=== PATIENT | male | born 1950 | race Caucasian/White ===

== ENCOUNTER 2025-01-31 06:19 | Day surgery (SDC) | payer MEDICARE, OTHER, SELFPAY ==
[2025-01-15 11:26] VITALS: BMI 26.6
[2025-01-23 13:16] VITALS: BMI 26.6
[2025-01-31] VITALS (19 sets, daily range): BP systolic 113–166; BP diastolic 63–93; BMI 26.6
[2025-01-31] MEDS: LYRICA 150 MG PO (07:59)
[2025-01-31] MEDS: CELEBREX 200 MG PO (07:59)
[2025-01-31] MEDS: TYLENOL 1000 MG PO ×3 (07:59→20:22)
[2025-01-31] MEDS: METHOCARBAMOL 1500 MG PO ×3 (07:59→21:34)
[2025-01-31] MEDS: NORMOSOL-R/PLASMALYTE-A 1000 IV ×2 (08:00→17:04)
[2025-01-31 11:03] LABS: Glucose - Point of Care 132 mg/dl (70-99)
--- NOTE | 2025-01-31 11:19 | W.DS.TRANS ---
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
-
Discharge Instructions:
Sleep Apnea Risk Intermediate
Discharge Diagnosis/Procedures lumbar lami Reza 01/31/25
Diet As tolerated
Activity No strenuous activity
Driving Restrictions No driving
Instructions:
Stand-Alone Forms: Reza Lumbar D/C Inst.
Changes to Home Medications: Yes
Discharge Medications:
DC Medications w/original date entered in [facility]
cholecalciferol (vitamin D3) 25 mcg (1,000 unit) tablet (Vitamin D3) 25 mcg PO DAILY 01/23/25
omega [id number]-etg-fish oil 1,000 mg (120 mg-180 mg) capsule (Fish Oil) 1 cap PO DAILY 01/23/25
Held on 01/31/25. Instructions: Resume on 02/08/25.
rosuvastatin 10 mg tablet 10 mg PO HS 01/23/25
vit C 250 mg-vit E 90 mg-zinc 40 mg-copper 1 [id number] capsule (PreserVision AREDS-2) 1 tab PO BID 01/23/25
Held on 01/31/25. Instructions: Resume on 02/08/25.
Saccharomyces boulardii 250 mg capsule (Florastor) 250 mg PO BID #1 cap 01/31/25
acetaminophen 325 mg tablet (Tylenol) 650 mg (2 x 325 mg) PO QID #1 tab 01/31/25
cephalexin 500 mg capsule 500 mg PO QID infection prevention #20 caps 01/31/25
dexamethasone 4 mg tablet 4 mg PO BID inflammation #6 tabs 01/31/25
docusate sodium 100 mg capsule (Colace) 100 mg PO BID stool softner #1 cap 01/31/25
gabapentin 300 mg capsule 300 mg PO HS sleep/pain #10 caps 01/31/25
lisinopril 5 mg tablet 5 mg PO BID #0 tabs 01/31/25
magnesium hydroxide 400 mg/5 mL oral suspension (Milk of Magnesia) 30 ml PO HS PRN constipation #1 mL 01/31/25
ondansetron 4 mg disintegrating tablet 4 mg PO Q6H PRN n/v #20 tabs 01/31/25
oxycodone 5 mg tablet 5 mg PO Q6H PRN 1 tab moderate pain, 2 tabs severe pain #30 tabs 01/31/25
sennosides 8.6 mg tablet (Senokot) 17.2 mg (2 x 8.6 mg) PO BID laxative #2 tabs 01/31/25
Home Medication Changes
Saccharomyces boulardii 250 mg capsule (Florastor) 250 mg PO BID #1 cap 01/31/25
acetaminophen 325 mg tablet (Tylenol) 650 mg (2 x 325 mg) PO QID #1 tab 01/31/25
cephalexin 500 mg capsule 500 mg PO QID infection prevention #20 caps 01/31/25
dexamethasone 4 mg tablet 4 mg PO BID inflammation #6 tabs 01/31/25
docusate sodium 100 mg capsule (Colace) 100 mg PO BID stool softner #1 cap 01/31/25
gabapentin 300 mg capsule 300 mg PO HS sleep/pain #10 caps 01/31/25
lisinopril 5 mg tablet 5 mg PO BID #0 tabs 01/31/25
magnesium hydroxide 400 mg/5 mL oral suspension (Milk of Magnesia) 30 ml PO HS PRN constipation #1 mL 01/31/25
ondansetron 4 mg disintegrating tablet 4 mg PO Q6H PRN n/v #20 tabs 01/31/25
oxycodone 5 mg tablet 5 mg PO Q6H PRN 1 tab moderate pain, 2 tabs severe pain #30 tabs 01/31/25
sennosides 8.6 mg tablet (Senokot) 17.2 mg (2 x 8.6 mg) PO BID laxative #2 tabs 01/31/25
Pending Results: No
[2025-01-31] MEDS: DILAUDID 0.25 MG IV (11:27)
[2025-01-31] MEDS: ULTRAM 50 MG PO ×3 (14:35→21:36)
[2025-01-31] MEDS: ANCEF 5 IV ×2 (15:01→22:09)
[2025-01-31] MEDS: ZOFRAN 4 MG IV (17:13)
--- NOTE | 2025-01-31 17:14 | PTCARENOTE ---
pt admitted from PACU AOx3. LCTA b/l 2L via NC. pt nauseous and vomiting, PRN zofran administered. hyperactive BS x4. No edema, gauze dressing to mid lower back CDI. +PP d/L SCDs in place. Call estrada in use, instructed on use
[2025-01-31 17:34] LABS: Glucose - Point of Care 176 mg/dl (70-99)
[2025-01-31] MEDS: LYRICA 75 MG PO (20:22)
[2025-01-31] MEDS: SENOKOT 17.2 MG PO (20:22)
[2025-01-31] MEDS: COLACE 100 MG PO (20:22)
[2025-01-31] MEDS: CRESTOR 10 MG PO (21:33)
[2025-02-01] VITALS (8 sets, daily range): BP systolic 104–174; BP diastolic 59–91; PULSE 58–67
[2025-02-01] MEDS: ULTRAM 50 MG PO ×3 (02:08→10:56)
[2025-02-01] MEDS: TYLENOL 1000 MG PO ×2 (02:08→08:27)
[2025-02-01 07:58] LABS: Hematocrit 36.8 % (39.0-52.0); Hemoglobin 12.6 g/dL (13.0-18.0)
[2025-02-01 08:18] LABS: Blood Urea Nitrogen 20 mg/dl (9-20); Calcium 8.7 mg/dl (8.4-10.2); Carbon Dioxide 27 mmol/L (22-30); Chloride 102 mmol/L (98-107); Estimated Creatinine Clearance 53 ml/min; Glucose 141 mg/dl (70-99); Potassium 4.4 mmol/L (3.5-5.1); Sodium 134 mmol/L (135-145); eGFR > 60.00
[2025-02-01] MEDS: METHOCARBAMOL 1500 MG PO (08:25)
[2025-02-01] MEDS: LYRICA 75 MG PO (08:25)
[2025-02-01] MEDS: SENOKOT 17.2 MG PO (08:26)
[2025-02-01] MEDS: COLACE 100 MG PO (08:26)
[2025-02-01 09:11] LABS: Hepatitis C Antibody Negative (Negative)
--- NOTE | 2025-02-01 10:19 | CM ---
Cm reviewed medical records. CM met with patient in room. Patient confirmed demographics. Patient denies history of VN or SNF. Patient is active with his PCP. Patient has medication coverage.
PLAN: Home with .
[2025-02-01] MEDS: DECADRON 4 MG IV (10:52)
--- NOTE | 2025-02-01 11:28 | W.PN.ORTHO ---
Today's Communication / Plan
-
d/c
Assessment
.
Distal Motor Intact: Yes
Dressing:
Clean, dry and intact.
Assessment:
Migraine-resume home Maxalt
Plan
.
Surgery / Date: L4-[address] Reza 01/31/25
Activity:
Out of bed.
PT/OT
Discharge Plan: Home
Subjective
.
.:
Patient resting comfortably.
Vital Signs and Labs
.
Vital Signs and Labs:
Lab Results
02/01/25 07:38
02/01/25 07:38
Temp Pulse Resp BP Pulse Ox
97.9 F 64 18 118/76 96
02/01/25 07:15 02/01/25 07:15 02/01/25 07:15 02/01/25 07:15 02/01/25 07:15
Physical Exam
-
HEENT: No pallor, cyanosis, or jaundice. Throat clear.
NECK: Supple. No JVD.
RESPIRATORY: Lungs clear to auscultation.
CVS: S1, S2 normal. RRR.� No murmur, rub or gallop.
ABDOMEN: Soft, non-tender. No distension. BS+/normal.
EXTREMITIES: strength equal, no calf pain with palpation
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 No focal deficits. 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
[2025-02-01] MEDS: MAXALT MLT (ORALLY DISINTEGRATING) 10 MG PO (11:36)
[2025-02-01] MEDS: METHOCARBAMOL PO (13:00)
== END 2025-02-01 13:56 | disposition home or self-care (01) ==
LOC: SDS 06:19
PROVIDERS: Physician Assistant Medical; ATTENDING PHYSICIAN Orthopaedic Surgery Orthopaedic Surgery of the Spine
DX: M48.061 Spinal stenosis, lumbar region without neurogenic claudication (principal); M43.16 Spondylolisthesis, lumbar region; M71.38 Other bursal cyst, other site
CPT/HCPCS: 22612; 72100; 76000; 80048; 82962; 85014; 85018; 86803; 88304; 97162; 97166; 97535; C1713; C1776